=== PATIENT | female | born 1965 | race Caucasian/White ===

== ENCOUNTER → 2016-04-27 | Outpatient (CLI) | payer OTHER | LOC: MC.RAD 10:40 | DX: Z12.31 Encounter for screening mammogram for malignant neoplasm of breast (principal) ==

== ENCOUNTER → 2017-04-28 | Outpatient (CLI) | payer OTHER | LOC: MC.RAD 10:00 | DX: Z12.31 Encounter for screening mammogram for malignant neoplasm of breast (principal) ==

== ENCOUNTER → 2019-05-18 | Outpatient (CLI) | payer OTHER | LOC: MC.RAD 14:23 | DX: Z12.31 Encounter for screening mammogram for malignant neoplasm of breast (principal); N60.01 Solitary cyst of right breast; Z98.82 Breast implant status ==

== ENCOUNTER → 2020-03-20 | Outpatient (CLI) | payer OTHER | LOC: COL.RAD 12:51 | DX: M17.11 Unilateral primary osteoarthritis, right knee (principal) ==

== ENCOUNTER → 2020-05-20 | Outpatient (CLI) | payer OTHER | LOC: MC.RAD 14:35 | DX: Z12.31 Encounter for screening mammogram for malignant neoplasm of breast (principal); Z98.82 Breast implant status ==

== ENCOUNTER → 2021-05-29 | Outpatient (CLI) | payer OTHER | LOC: MC.RAD 11:43 | DX: Z12.31 Encounter for screening mammogram for malignant neoplasm of breast (principal) ==

== ENCOUNTER → 2023-07-25 | Outpatient (CLI) | payer OTHER | LOC: MC.RAD 07-18 08:15 | DX: Z12.31 Encounter for screening mammogram for malignant neoplasm of breast (principal); Z98.82 Breast implant status ==

== ENCOUNTER → 2023-07-25 | Outpatient (CLI) | payer OTHER | LOC: MC.RAD 13:22 | DX: Z12.31 Encounter for screening mammogram for malignant neoplasm of breast (principal); Z98.82 Breast implant status ==

== ENCOUNTER → 2024-01-17 | Outpatient (CLI) | payer OTHER | LOC: COL.RAD 06:56 | DX: M25.862 Other specified joint disorders, left knee (principal) ==